=== PATIENT | male | born 1965 | race Caucasian/White ===

== ENCOUNTER → 2017-05-16 | Outpatient (CLI) | payer OTHER | END | disposition home or self-care (01) | LOC: C.PATHSPEC 11:58 | PROVIDERS: ATTEND Urology | DX: D07.5 Carcinoma in situ of prostate (principal); R97.20 Elevated prostate specific antigen [PSA] ==

== ENCOUNTER 2017-09-05 07:30 | Day surgery (SDC) | payer OTHER ==
[2017-08-20 12:40] VITALS: Ht 172.7 cm; Wt 76.9 kg
--- NOTE | 2017-08-20 13:30 | PAT Medication Instructions ---
Service Date August 20, 2017. Current Home Medication List Acetaminophen (Tylenol), 2 TAB PO Q6 PRN for Pain Alfuzosin Hcl (Uroxatral), 10 MG PO QPM Baclofen (Lioresal), 10 MG PO HS Ciprofloxacin Hcl (Cipro), 500 MG PO BID Fluticasone Propionate (Nasal) (Allergy Nasal [facility] [address]), 1-2 SPRAYS SCOTT QAM PRN for Nasal Congestion Methylprednisolone (Medrol Dosepak), 1 DOSE PO UD Multivitamin (Multivitamin), 1 TAB PO QAM Naproxen Ds (Naprosyn Ds), 550 MG PO BID PRN for Pain Oxycodone/Acetaminophen 5MG/325MG (Oxycodone/Acetaminophen 5MG/325MG), 1-2 TABLETS PO Q4H PRN for Pain Phenazopyridine HCl (Pyridium), 200 MG PO TID Phenylephrine HCl (Oral) (Sudafed PE Congestion), 1 TAB PO Q6H PRN for Nasal Congestion Verapamil (Calan), Unknown Dose PO QPM Zolmitriptan (Zomig), 5 MG PO PRN PRN for Headache Medication Instructions For Your Scheduled Surgery -Continue as directed by your surgeon: Methylprednisolone (Medrol Dosepak), 1 DOSE PO UD Ciprofloxacin Hcl (Cipro), 500 MG PO BID Alfuzosin Hcl (Uroxatral), 10 MG PO QPM Phenazopyridine HCl (Pyridium), 200 MG PO TID -Check with your surgeon for: Naproxen Ds (Naprosyn Ds), 550 MG PO BID PRN for Pain - Hold the following medications the morning of surgery: Multivitamin (Multivitamin), 1 TAB PO QAM Phenylephrine HCl (Oral) (Sudafed PE Congestion), 1 TAB PO Q6H PRN for Nasal Congestion - Take the following medications the morning of surgery with a sip of water: Acetaminophen (Tylenol), 2 TAB PO Q6 PRN for Pain (if needed, must be taken at least four hours before surgery) Fluticasone Propionate (Nasal) (Allergy Nasal [facility] [address] Ho), 1-2 SPRAYS SCOTT QAM PRN for Nasal Congestion (if needed) Zolmitriptan (Zomig), 5 MG PO PRN PRN for Headache (if needed) Oxycodone/Acetaminophen 5MG/325MG (Oxycodone/Acetaminophen 5MG/325MG), 1-2 TABLETS PO Q4H PRN for Pain (if needed, must be taken at least four hours before surgery) - Take the following medications as scheduled the night before surgery: Acetaminophen (Tylenol), 2 TAB PO Q6 PRN for Pain (if needed) Baclofen (Lioresal), 10 MG PO HS Fluticasone Propionate (Nasal) (Allergy Nasal [facility] [address] Ho), 1-2 SPRAYS SCOTT QAM PRN for Nasal Congestion (if needed) Oxycodone/Acetaminophen 5MG/325MG (Oxycodone/Acetaminophen 5MG/325MG), 1-2 TABLETS PO Q4H PRN for Pain (if needed) Phenylephrine HCl (Oral) (Sudafed PE Congestion), 1 TAB PO Q6H PRN for Nasal Congestion (if needed) Verapamil (Calan), Unknown Dose PO QPM Zolmitriptan (Zomig), 5 MG PO PRN PRN for Headache (if needed) If you have any questions please call us at [phone] or [phone] or [phone]
--- NOTE | 2017-08-20 13:50 | DIAGNOSTIC IMAGING REPORT ---
CHEST 2 VIEWS ROUTINE CLINICAL HISTORY: 52 years-old Male presenting with preoperative assessment. TECHNIQUE: PA and lateral views of the chest were obtained. COMPARISON: None. FINDINGS: Cardiomediastinal silhouette normal. Lungs and pleural spaces clear. Osseous structures normal. Upper abdomen normal. IMPRESSION: 1. No acute cardiopulmonary disease. Electronically signed by: Karel Moraes M.D. 08/20/2017 1:48 PM Dictated Date/Time: 08/20/2017 1:48 PM
[2017-08-20 15:32] LABS: BASO % 0.2 %; BASO ABS # 0.01 K/uL (0-0.2); EOS % 2.9 %; EOS ABS # 0.18 K/uL (0-0.5); HEMATOCRIT 35.7 % (42-52); HEMOGLOBIN 11.6 g/dL (14.0-18.0); IG# 0.02 K/uL (0.00-0.02); LYMPH % 27.9 %; LYMPH ABS # 1.75 K/uL (1.2-3.4); MEAN CELL VOLUME 60.5 fL (80-100); MEAN CORPUSCULAR HEMOGLOBIN 19.7 pg (25-34); MEAN CORPUSCULAR HGB CONC 32.5 g/dl (32-36); MONO % 8.6 %; MONO ABS # 0.54 K/uL (0.11-0.59); NEUT % 60.1 %; NEUT ABS # 3.77 K/uL (1.4-6.5); PLATELET COUNT 256 K/uL (130-400); RED CELL DISTRIBUTION WIDTH CV 15.7 % (11.5-14.5); RED CELL DISTRIBUTION WIDTH SD 33.1 fL (36.4-46.3); WHITE BLOOD COUNT 6.27 K/uL (4.8-10.8)
[2017-08-20 16:12] LABS: CALCIUM 8.7 mg/dl (8.5-10.1); CREATININE 0.91 mg/dl (0.60-1.40); POTASSIUM 3.9 mmol/L (3.5-5.1)
[~2017-09-05] VITALS: Ht 172.7 cm; Wt 76.9 kg
[~2017-09-05 07:30] MED LIST: ACET-1256 PO; ALFU10TA2 PO; BACL10TA PO; CIPR-255 PO; CIPROFLOXACIN / D5W 400 MG IV SCH; FLUT50SP45 NAE; LACTATED RINGER'S 1000ML 1,000 ML IV SCH; METH4PAK PO; MULT-506 PO; NAPR-1168 PO; OXYC-643 PO; PHEN-876 PO; PHEN10TA73 PO; VERA120T15 PO; ZOLM1TAB3 PO
[2017-09-05 08:11] VITALS: BP 137/88; PULSE 108; TEMP 36.7; O2SAT 97
[2017-09-05] MEDS ORDERED: ROCURONIUM BROMIDE 10 MG/ML 5 ML VIAL ONE ×2 (08:32→09:04)
[2017-09-05] MEDS ORDERED: LIDOCAINE HCL 2% 2 ML VIAL (20MG/ML) ONE (09:04)
[2017-09-05] MEDS ORDERED: FENTANYL CITRATE INJ 50 MCG/1 ML 2 ML VIAL ONE (09:04)
[2017-09-05] MEDS ORDERED: PROPOFOL IV EMULSION 10 MG/ML 20 ML VIAL ONE (09:04)
[2017-09-05] MEDS ORDERED: DEXAMETHASONE SOD INJ 4 MG/ML VIAL ONE (09:04)
[2017-09-05] MEDS ORDERED: MIDAZOLAM HCL 1 MG/ML 2ML VIAL ONE (09:04)
[2017-09-05] MEDS ORDERED: ONDANSETRON INJ 2 MG/ML 2 ML VIAL ONE (09:04)
--- NOTE | 2017-09-05 09:21 | History & Physical Bridge Note ---
H&P Re-Evaluation Bridge Note: I have examined the patient, reviewed the History & Physical and in the interval since the performance of the History & Physical I have noted the following changes of clinical significance: No changes noted
[2017-09-05] MEDS ORDERED: ATROPINE SULFATE 0.1 MG/ML 5ML SYR IV PRN (09:45)
[2017-09-05] MEDS ORDERED: ONDANSETRON INJ 2 MG/ML 2 ML VIAL IV PRN (09:45)
[2017-09-05] MEDS ORDERED: EpHEDrine SULFATE INJ 50 MG/ML AMP IV PRN (09:45)
[2017-09-05] MEDS ORDERED: FENTANYL CITRATE INJ 50 MCG/1 ML 2 ML VIAL IV PRN (09:45)
[2017-09-06] MEDS ORDERED: VERA120T5 PO (13:52)
== END 2017-09-05 10:20 | disposition home or self-care (01) ==
LOC: C.ACU 07:30
PROVIDERS: ATTEND Urology
DX: C61 Malignant neoplasm of prostate (principal); Z53.09 Procedure and treatment not carried out because of other contraindication; N40.0 Benign prostatic hyperplasia without lower urinary tract symptoms; Z83.3 Family history of diabetes mellitus; Z84.1 Family history of disorders of kidney and ureter; Z88.1 Allergy status to other antibiotic agents; K21.9 Gastro-esophageal reflux disease without esophagitis; M19.90 Unspecified osteoarthritis, unspecified site; F41.9 Anxiety disorder, unspecified; F32.9 Major depressive disorder, single episode, unspecified